=== PATIENT | female | born 1970 | race Hispanic/Latino ===

== ENCOUNTER → 2019-02-27 | Outpatient (CLI) | payer OTHER | END | disposition home or self-care (01) | LOC: RAH 14:23 | PROVIDERS: ATTEND Obstetrics & Gynecology | DX: Z12.31 Encounter for screening mammogram for malignant neoplasm of breast (principal) | CPT/HCPCS: 77067 ==

== ENCOUNTER → 2020-01-24 | Outpatient (CLI) | payer OTHER | END | disposition home or self-care (01) | LOC: RAH 12:54 | PROVIDERS: ATTEND Internal Medicine | DX: R05 Cough (principal) | CPT/HCPCS: 71046 ==

== ENCOUNTER → 2020-07-17 | Outpatient (CLI) | payer OTHER | END | disposition home or self-care (01) | LOC: RAH 14:43 | PROVIDERS: ATTEND Internal Medicine | DX: R05 Cough (principal); R07.9 Chest pain, unspecified; M47.814 Spondylosis without myelopathy or radiculopathy, thoracic region; Z98.82 Breast implant status | CPT/HCPCS: 71046 ==

== ENCOUNTER → 2020-12-30 | Outpatient (CLI) | payer OTHER | END | disposition home or self-care (01) | LOC: RAH 11:06 | PROVIDERS: ATTEND Obstetrics & Gynecology | DX: Z12.31 Encounter for screening mammogram for malignant neoplasm of breast (principal) | CPT/HCPCS: 77067 ==

== ENCOUNTER → 2022-04-15 | Outpatient (CLI) | payer OTHER | END | disposition home or self-care (01) | LOC: RAH 12:55 | PROVIDERS: ATTEND Internal Medicine Rheumatology | DX: M79.604 Pain in right leg (principal); R60.0 Localized edema; M25.551 Pain in right hip; M16.0 Bilateral primary osteoarthritis of hip; M76.61 Achilles tendinitis, right leg; M79.7 Fibromyalgia; F51.01 Primary insomnia; N95.1 Menopausal and female climacteric states; G43.809 Other migraine, not intractable, without status migrainosus; R41.3 Other amnesia; Z88.8 Allergy status to other drugs, medicaments and biological substances | CPT/HCPCS: 72100; 73502; 93971 ==

== ENCOUNTER → 2022-05-25 | Outpatient (CLI) | payer OTHER | END | disposition home or self-care (01) | LOC: RAH 13:27 | PROVIDERS: ATTEND Obstetrics & Gynecology | DX: Z12.31 Encounter for screening mammogram for malignant neoplasm of breast (principal) | CPT/HCPCS: 77067 ==

== ENCOUNTER → 2023-06-18 | Outpatient (CLI) | payer OTHER | END | disposition home or self-care (01) | LOC: RAH 14:30 | PROVIDERS: ATTEND Obstetrics & Gynecology | DX: Z12.31 Encounter for screening mammogram for malignant neoplasm of breast (principal) | CPT/HCPCS: 77067 ==

== ENCOUNTER → 2023-10-18 | Outpatient (CLI) | payer OTHER | END | disposition home or self-care (01) | LOC: RAH 15:11 | PROVIDERS: ATTEND Internal Medicine | DX: R51.9 Headache, unspecified (principal); W19.XXXA Unspecified fall, initial encounter; Y93.89 Activity, other specified; Y92.89 Other specified places as the place of occurrence of the external cause; Y99.8 Other external cause status | CPT/HCPCS: 70250 ==

== ENCOUNTER → 2024-08-01 | Outpatient (CLI) | payer OTHER ==
--- NOTE | 2024-08-01 09:32 | HMCIMG ---
Bilateral mammography HISTORY: Screening mammogram COMPARISON: June 18, 2023 FINDINGS: Bilateral CC and MLO views demonstrate low density breast parenchyma. There are no dominant masses, areas of architectural distortion, or suspicious clusters of microcalcifications. There are benign-appearing calcifications. There are no worrisome interval changes when compared with the prior exam. Images were reviewed with CAD assist. Impression: 1. No specific mammographic evidence of malignancy. 2. Routine yearly mammographic follow-up is recommended. BI-RADS 2 Please note that a negative mammogram does not preclude the possibility of neoplastic disease.
== END | disposition home or self-care (01) ==
LOC: RAH 08:45
PROVIDERS: ATTEND Obstetrics & Gynecology
DX: Z12.31 Encounter for screening mammogram for malignant neoplasm of breast (principal); R92.1 Mammographic calcification found on diagnostic imaging of breast
CPT/HCPCS: 77067

== ENCOUNTER → 2024-08-29 | Outpatient (CLI) | payer OTHER ==
--- NOTE | 2024-08-29 13:55 | HMCIMG ---
US BREAST COMPLETE UNILATERAL REASON: BREAST PAIN. COMPARISON: 08/01/2024 TECHNIQUE: Left breast ultrasound study was performed. FINDINGS: Dense fibroglandular tissue is seen of left breast. Over the region of the interest in the 12-3 o'clock of left breast, no definite cystic or hypoechoic mass is seen. There is left axillary lymph node measuring 13 x 10 x 10 mm. IMPRESSION: No evidence of cystic or hypoechoic mass is seen. CATEGORY 2: BENIGN FINDINGS Recommend monthly self breast exam as well as annual clinical examination.
== END | disposition home or self-care (01) ==
LOC: RAH 10:47
PROVIDERS: ATTEND Obstetrics & Gynecology
DX: N64.4 Mastodynia (principal); R92.322 Mammographic fibroglandular density, left breast
CPT/HCPCS: 76641

== ENCOUNTER → 2024-11-15 | Outpatient (CLI) | payer OTHER ==
--- NOTE | 2024-11-15 12:21 | HMCIMG ---
US TRANSVAGINAL NON-OB HISTORY: Postmenopausal bleeding COMPARISON: None TECHNIQUE: Transabdominal pelvic ultrasound study was performed. FINDINGS: The uterus measures 7.8 x 4.1 x 5.6 cm. The right ovary measures 2.6 x 1.5 x 2.9 cm. The left ovary is not seen. Endometrial thickness is 4 mm. There is left ovarian cystic structure measuring 3.6 x 2.4 x 3.2 cm. No free fluid is seen in the cul-de-sac. IMPRESSION: 1. No adnexal mass is seen. Left ovarian cystic structure measuring 3.6 x 2.4 x 3.2 cm.
== END | disposition home or self-care (01) ==
LOC: RAH 10:48
PROVIDERS: ATTEND Obstetrics & Gynecology
DX: R93.89 Abnormal findings on diagnostic imaging of other specified body structures (principal); N95.0 Postmenopausal bleeding
CPT/HCPCS: 76830

== ENCOUNTER 2025-06-24 16:16 | Emergency (ER) | payer OTHER ==
[~2025-06-24] VITALS: Ht 160 cm; Wt 61.7 kg
[2025-06-24 16:50] LABS: COVID19 (SARS ANTIGEN RAPID) PRESUMPTIVE NEGATIVE (NEGATIVE); INFLUENZA TYPE A Negative For Type A (NEGATIVE); INFLUENZA TYPE B Negative For Type B (NEGATIVE)
[2025-06-24 17:14] LABS: IMMATURE GRANULOCYTE ABSOLUTE 0.04 K/uL (0-1); NUCLEATED RED BLOOD CELLS 0.0 % (0.0-0.19); PLATELET COUNT (AUTO) 366 K/uL (130-400); RED BLOOD CELL COUNT(AUTO) 4.07 MIL/uL (4.00-5.50); RED CELL DISTRIBUTION WIDTH 12.8 % (11.0-15.5); WHITE BLOOD COUNT (AUTO) 9.8 K/uL (4.8-10.8)
[2025-06-24 17:28] LABS: CREATININE 0.6 mg/dL (0.5-1.0); GLOMERULAR FILTR. RATE CALC 105.0 mL/min (>90); GLUCOSE,RANDOM 109.0 mg/dL (70-105); SODIUM SERUM 138.0 mmol/L (136-145); UREA NITROGEN, BLOOD 8.0 mg/dL (7-18)
--- NOTE | 2025-06-24 17:28 | EKG ---
[facility] Test Date: 2025-06-24 Test Time: 16:58:02 Pat Name: CARMELITA WATSON Department: ED Room: Gender: F Vegetable Tier: [id number] : 1970 Requested By: EPHRAIM BARROS Order Number: [id number] Reading MD: Antwan Cohn Measurements Intervals [place] Rate: 78 P: 118 FL: 159 QRS: 98 QRSD: 90 T: 114 QT: 337 QTc: 386 Interpretive Statements Right and left arm electrode reversal, interpretation assumes no reversal Sinus rhythm Probable lateral infarct, age indeterminate No previous ECG available for comparison Electronically Signed On 06-24-2025 20:06:19 SLASHER by Antwan Cohn Please click the below link to view image of tracing.
--- NOTE | 2025-06-24 18:24 | ERN ---
ED Note History of Present Illness Stated Complaint: FLU Chief Complaint: Flu Symptoms Time Seen by MD: 16:36 Time Seen by Midlevel: 16:40 Dictation: 55-year-old female coming in with complaints of generalized body malaise, cough, chest pain. Allergies: Coded Allergies: amitriptyline (Unverified Allergy, Unknown, HIVES, 06/24/25) diazepam (Unverified Allergy, Unknown, RASH, 06/24/25) iodine (Unverified Allergy, Unknown, RASH, 06/24/25) tramadol (Unverified Allergy, Unknown, HIVES, 06/24/25) trazodone (Unverified Allergy, Unknown, HIVES, 06/24/25) Home Meds Active Scripts Albuterol Sulfate (Ventolin Hfa/Proventil Hfa/Proair Hfa) 90 Mcg Puff, 1-2 PUFF IH Q4H PRN for SHORTNESS OF BREATH for 5 Days, #1 INH 0 Refills PHARMACY TO DISPENSE 1 INHALER FOR USE Prov:EPHRAIM BARROS [facility] 06/24/25 Levofloxacin (Levaquin 750Mg Tabs) 750 Mg Tablet, 1 TAB PO DAILY for 7 Days, #7 TAB 0 Refills Prov:EPHRAIM BARROS [facility] 06/24/25 Methylprednisolone (Medrol) 4 Mg Tab.ds.pk, 1 TAB PO AD for 6 Days, #21 TAB 0 Refills 6 on day 1 then reduce by one tablet daily until gone Prov:EPHRAIM BARROS [employer] 06/24/25 Past Medical History Past Medical History: Fibromyalgia, Migraines Surgical History: Other, BTL Surgical History Other: BREAST AUGMENTATION Review of System Dictation Constitutional: Subjective fever and generalized malaise Eyes: Negative for injury, pain,redness, and discharge ENT: Negative for injury,pain or swelling Cardiovascular: Positive chest pain Respiratory: Positive cough Abdomen/GI: Negative for abdominal pain, nausea, vomiting, diarrhea, and constipation Back: Negative for injury and pain : Negative for injury, bleeding and discharge MS/Extremity: Negative for injury and deformity Skin: Negative for rash, and discoloration Neuro: Negative for headache, weakness, numbness, tingling, and seizure Psych: Negative for suicide ideation, homicidal ideation, and hallucinations Review of Systems: was completed Initial Vital Sign VS Vital Signs Date Time Temp Pulse Resp B/P (MAP) Pulse Ox O2 Delivery O2 Flow Rate FiO2 06/24/25 16:18 98.8 88 16 111/56 100 Room Air 0 06/24/25 18:30 21 Physical Exam Dictation General: awake, alert, NAD Head/Face: Normocephalic, atraumatic Eyes: PERRL, EOMI, vision at baseline ENT: oral cavity clear, TMs clear, no signs of infection Neck: Trachea midline, supple, no nuchal rigidity Cardiovascular: RRR, normal S1/S2, No MRGs, no JVD Respiratory: CTAB, no respiratory distress, No rales or wheezes Abdomen: Soft, non-tender, non-distended, normal bowel sounds, no guarding or rebound. Skin: Warm, dry, normal turgor, no rash MS/Extremity: Pulses equal, no cyanosis, neurovascular intact, FROM Neuro: COAx4, GCS 15, strength 5/5, CN 2-12 intact, normal cerebellar exam, normal gait, Psych: Normal behavior, mood, and affect normal Results (Laboratory/Radiology) Laboratory/Radiology Laboratory Tests Test 06/24/25 16:22 06/24/25 17:08 Influenza Type A Antigen Negative For Type A Influenza Type B Antigen Negative For Type B SARS-CoV-2 Antigen (Rapid) PRESUMPTIVE NEGATIVE White Blood Count 9.8 K/uL (4.8-10.8) Red Blood Count 4.07 MIL/uL (4.00-5.50) Hemoglobin 12.6 g/dL (12.0-16.0) Hematocrit 37.9 % (36-48) Mean Corpuscular Volume 93.1 fL (79-99) Mean Corpuscular Hemoglobin 31.0 pg (27.0-33.0) Mean Corpuscular Hemoglobin Concent 33.2 g/dL (32.0-36.0) Red Cell Distribution Width 12.8 % (11.0-15.5) Platelet Count 366 K/uL (130-400) Mean Platelet Volume 9.4 fL (7.5-10.5) Immature Granulocyte % (Auto) 0.4 % (0-1) Neutrophils (%) (Auto) 74.3 % (40.0-77.0) Lymphocytes (%) (Auto) 14.8 % (21.0-51.0) L Monocytes (%) (Auto) 8.4 % (3.0-13.0) Eosinophils (%) (Auto) 1.8 % (0.0-8.0) Basophils (%) (Auto) 0.3 % (0.0-5.0) Neutrophils # (Auto) 7.3 K/uL (1.8-7.7) Lymphocytes # (Auto) 1.5 K/uL (1.0-4.8) Monocytes # (Auto) 0.8 K/uL (0.1-1.0) Eosinophils # (Auto) 0.18 K/uL (0.00-0.70) Basophils # (Auto) 0.03 K/uL (0.00-0.20) Absolute Immature Granulocyte (auto 0.04 K/uL (0-1) Nucleated Red Blood Cells 0.0 % (0.0-0.19) Sodium Level 138 mmol/L (136-145) Potassium Level 3.3 mmol/L (3.5-5.1) L Chloride Level 101 mmol/L (101-111) Carbon Dioxide Level 32 mmol/L (21-32) Blood Urea Nitrogen 8 mg/dL (7-18) Creatinine 0.6 mg/dL (0.5-1.0) Glomerular Filtration Rate Calc 105 mL/min (>90) Random Glucose 109 mg/dL (70-105) H Total Calcium 9.0 mg/dL (8.5-10.1) Troponin I High Sensitivity < 4 ng/L (4-50) L Labs Reviewed?: Yes EKG Comment: EKGs did not at 4:58 p.m.. 78 Beats per minute. Sinus rhythm. No STEMI interpreted by ER MD X-RAY Comment: [address] [address] IMAGING REPORT Signed PATIENT: CARMELITA SOSA MR#: [id number] : 1970 SEX: F AGE: 55 LOCATION: [facility] ORDER 34 STATUS: DEP ER REPORT#: [id number] SERVICE 33 REASON: cough ORDERING PHYSICIAN: EPHRAIM BARROS CNP PROCEDURE: CXR1VW - CHEST 1VW EXAM: CR Chest, 1 View. CLINICAL HISTORY: cough COMPARISON: None provided. FINDINGS: LUNGS: Left lower lobe pneumonia. PLEURAL SPACES: No pleural effusion or pneumothorax. MEDIASTINUM: Cardiac size and mediastinal contours within normal limits. BONES: No aggressive appearing osseous lesion seen. IMPRESSION: 1. Left lower lobe pneumonia. /[place] DICTATED BY: MICHELINE WALTERS Jr., MD DATE: 06/24/252007 ELECTRONICALLY SIGNED BY: MICHELINE WALTERS Jr., MD DATE: 06/24/252007 ED Course ED Course Orders Procedure Category Date Status Time Influenza Type A & B, LAB 06/24/25 Complete Rapid 16:18 Covid19 (Sars Antigen LAB 06/24/25 Complete Rapid) 16:18 Cbc With Differential LAB 06/24/25 Complete 16:40 Basic Metabolic Panel LAB 06/24/25 Complete 16:40 Troponin I High LAB 06/24/25 Complete Sensitivity 16:40 12 Lead Ekg Tracing- EKG 06/24/25 Complete Technical 16:40 Ketorolac PHA 06/24/25 Complete Tromethamine 15mg/Ml 17:00 Acetaminophen 325 Tab PHA 06/24/25 Complete (Tylenol 325mg Tab 17:00 Chest 1vw RAD 06/24/25 Resulted 17:34 Dexamethasone 4mg/Ml PHA 06/24/25 Complete 1ml Vial (Dexametha 19:27 Levofloxacin 750mg PHA 06/24/25 Complete Tab (Levaquin 750mg T 19:27 Current Medications Medications (Trade) Dose Ordered Sig/Sarah Route PRN Reason Start Time Stop Time Status Last Admin Dose Admin Acetaminophen (TYLenol 325MG TAB) 650 mg ONCE ONCE PO 06/24/25 17:00 06/24/25 17:01 DC 06/24/25 17:01 Dexamethasone Sodium Phosphate (dexaMETHasone 4MG/ML 1ML VIAL) 6 mg ONCE STAT IM 06/24/25 19:27 06/24/25 19:30 DC Ketorolac Tromethamine (toRADol) 15 mg ONCE ONCE IM 06/24/25 17:00 06/24/25 17:01 DC 06/24/25 17:00 Levofloxacin (LEvaquIN 750MG TAB) 750 mg ONCE STAT PO 06/24/25 19:27 06/24/25 19:30 DC Vital Signs Date Time Temp Pulse Resp B/P (MAP) Pulse Ox O2 Delivery O2 Flow Rate FiO2 06/24/25 18:30 98.8 85 17 112/52 100 Room Air* 0 21 06/24/25 16:18 98.8 88 16 111/56 100 Room Air 0 HEART Score Response (Comments) Value History: Low suspicion (0) 0 EKG: Normal 0 Age: 45-65yrs (+1) 1 Risk Factors: No known risk factors (0) 0 Initial Troponin: Normal limit (0) 0 Total 1 Medical Decision Making MDM MDM: 55-year-old female history of fibromyalgia coming in with complaints of generalized body malaise, cough, chest pain. All blood work is unremarkable. Troponin is negative. EKGs shows no ST elevations or dysrhythmias. Swabs are negative. Has a remained stable, no tachypnea, no hypoxia. Shows left lower lobe pneumonia. Levaquin, steroids, ketorolac he has been in the ER. Starting with Medrol pack, antibiotics and inhaler. This was discussed with the patient educated follow up with PCP on Wednesday. Patient verbalized understanding, answered all questions. Differential diagnosis: ACS, dehydration, pneumonia, viral syndrome Rationale: Tests considered and ordered secondary to shared decision making include: Previous outside records reviewed: Old ER visits. Risk of complication and/or morbidity or mortality of patient management: None Medications-Per medication reconciliation Need for hospitalization: Patient does not meet criteria for hospitalization. Need for emergency major/minor surgery: No There are no social concerns with this patient. Prescription drug management Prescriptions will include symptomatic care Patient's prior external medical records from other ER visits were reviewed by me as indicated. Prior testing and results from previous visits were reviewed. Prior tests were taken into account with medical decision making and resource utilization, independent historian/historians were used to obtain complete medical history. I independently interpreted the test that were performed, results were reviewed by me and considered findings on radiology if ordered. Medical management and examination interpretation discussions were had by me with other qualified healthcare professionals as indicated for the patient's care. DX & DISP Disposition: Discharge Departure Impression: Primary Impression: Pneumonia Condition: Stable Scripts Albuterol Sulfate (Ventolin Hfa/Proventil Hfa/Proair Hfa) 90 Mcg Puff 1-2 PUFF IH Q4H PRN for SHORTNESS OF BREATH for 5 Days, #1 INH 0 Refills PHARMACY TO DISPENSE 1 INHALER FOR USE Prov: EPHRAIM BARROS CNP 06/24/25 Levofloxacin (Levaquin 750Mg Tabs) 750 Mg Tablet 1 TAB PO DAILY for 7 Days, #7 TAB 0 Refills Prov: EPHRAIM BARROS CNP 06/24/25 Methylprednisolone (Medrol) 4 Mg Tab.ds.pk 1 TAB PO AD for 6 Days, #21 TAB 0 Refills 6 on day 1 then reduce by one tablet daily until gone Prov: EPHRAIM BARROS CNP 06/24/25 Additional Instructions: Blood work is normal and your swabs negative for COVID and flu. Follow up with your primary care provider in the next 1-2 days. If you develop any worsening symptoms please return back to the emergency room. Referrals: ASHANTI FORD MD (PCP) Time of Disposition: 18:23 I have reviewed the case, and I agree with, Diagnosis and Plan EPHRAIM BARROS CNP Jun 24, 2025 18:24
[2025-06-24 18:30] VITALS: BP 112/52; PULSE 85; RESP 17; TEMP 98.7; O2SAT 100
--- NOTE | 2025-06-24 19:09 | HMCIMG ---
EXAM: CR Chest, 1 View. CLINICAL HISTORY: cough COMPARISON: None provided. FINDINGS: LUNGS: Left lower lobe pneumonia. PLEURAL SPACES: No pleural effusion or pneumothorax. MEDIASTINUM: Cardiac size and mediastinal contours within normal limits. BONES: No aggressive appearing osseous lesion seen. IMPRESSION: 1. Left lower lobe pneumonia. /[place]
--- NOTE | 2025-06-24 19:26 | NUR ---
PATIENT IN LOBBY IN TEARS, REPORTS PAIN 10/10, SPOUSE STATES PATIENT HAS BEEN DISCHARGED BUT WANTS TO KNOW IF ANYTHING MORE CAN BE DONE FOR PATIENT, STATES PATIENT HAS HX OF FIBROMYALGIA BUT HER PAIN TONIGHT IS WORSE THAN NORMAL, STATES PAIN IS CONTROLLED AT HOME WITH TRAMADOL BUT FOR THE LAST 2-3 DAYS HAS NOT BEEN RELIEVED. SPOUSE REQUESTING TO BE EXAMINED BY A PHYSICIAN. OFFERED SPOUSE TO HAVE PATIENT SIGN IN AGAIN TO RECEIVE AN EXAM BY PHYSICIAN, BUT SPOUSE DOES NOT BELIEVE PATIENT WILL WANT TO STAY MUCH LONGER. AFTER SPEAKING WITH Burak BARROS NP AND ER PHYSICIAN, PATIENT WILL BE BROUGHT BACK IN TO RECEIVE MEDICATIONS FOR EARLY PNEUMONIA AND THEN DISCHARGED.
[2025-06-24] MEDS ORDERED: METH4TAB3 PO (19:30)
[2025-06-24] MEDS ORDERED: LEVO750T68 PO (19:30)
[2025-06-24] MEDS ORDERED: ALBUHFA IH (19:30)
== END 2025-06-24 20:00 | disposition home or self-care (01) ==
LOC: EDH 16:16
DX: J18.1 Lobar pneumonia, unspecified organism (principal); M79.7 Fibromyalgia; G43.909 Migraine, unspecified, not intractable, without status migrainosus; Z88.8 Allergy status to other drugs, medicaments and biological substances; Z88.5 Allergy status to narcotic agent; Z79.899 Other long term (current) drug therapy; Z20.822 Contact with and (suspected) exposure to COVID-19
CPT/HCPCS: 99285; 71045; 87426; 84484; 80048; 85025; 87804 ×2; 36415; 96372 ×2; 93005; J1100; J1885